=== PATIENT | female | born 1995 | race African-American/Black ===

== ENCOUNTER 2023-03-28 16:31 | Emergency (ER) | payer MEDICAID, OTHER ==
[~2023-03-28] VITALS: Ht 177.8 cm; Wt 98.0 kg
[~2023-03-28 16:31] MED LIST: NYQUIL
[2023-03-28 16:53] VITALS: BP 156/106
[2023-03-28] MEDS ORDERED: TOPUD MT (17:21)
[2023-03-28] MEDS ORDERED: CLIN-194 MT (17:21)
[2023-03-28] MEDS ORDERED: ACETAMINOPHEN 325MG TABLET PO ONE (17:30)
== END 2023-03-28 17:53 | disposition home or self-care (01) ==
LOC: ER 16:53
DX: K04.7 Periapical abscess without sinus (principal); F12.90 Cannabis use, unspecified, uncomplicated
CPT/HCPCS: 99283